=== PATIENT | male | born 1990 | race Caucasian/White ===

== ENCOUNTER 2025-01-27 03:43 | Emergency (ER) | payer BC, SELFPAY ==
[2025-01-27 03:44] VITALS: BP 140/77; PULSE 112; RESP 18; TEMP 36.8; O2SAT 95; BMI 53.1
--- NOTE | 2025-01-27 04:14 | PD.EDNV ---
Nausea/Vomit./Diarrhea-RME/HPI General Chief complaint: Headache Stated complaint: H/A, VOMITING, FEELS DEHYDRATED Time Seen by Provider: 01/27/25 03:53 Arrival date/time: 01/27/25 03:43 RME / HPI RME / HPI Narrative: 34-year-old male presents to the ED with a complaint of feeling dehydrated. He is complaining of a headache and nausea and vomiting. He states that on Sunday he went for a hike and was from his group which was carrying his water for approximately 3 hours. He said he has been trying to drink fluid to rehydrate himself however he has been having nausea and vomiting and is unable to keep anything down. He denies any recent illness with fever or chills. He denies any body aches or muscle aches. Related Data Previous Rx's ?Medication ?Instructions ?Recorded ondansetron 4 mg disintegrating 4 mg PO Q8H PRN nausea and 01/27/25 tablet vomiting #10 tabs Allergies Allergy/AdvReac Type Severity Reaction Status Date / Time NKA* Allergy Uncoded 12/02/12 17:54 Review of Systems Review of Systems Systems Reviewed: All systems reviewed, normal except as documented ED Exam Narrative Physical exam: Alert and oriented 34-year-old male, mild acute distress due to headache. Pupils are PERRL. Lungs are clear, cardiovascular tachycardic at 112, regular rhythm without murmurs. Abdomen is obese, soft and nontender. No CVA tenderness is noted. Mucous membranes are tacky. Course Course Course Narrative: Labs reveal a mildly elevated white count of 13.5 with normal H&H and normal platelets. Chemistry panel reveals normal sodium, potassium, chloride, CO2 and gap. Normal BUN and creatinine. Glucose is minimally elevated at 108. Osmolality normal at 277. Magnesium normal at 2.1, phosphorus mildly low at 2.2, LFTs are normal. CK is normal at 41. LFTs are normal. Amylase and lipase are normal. Urinalysis reveals clear yellow urine with a specific gravity of 1.027 with a pH of 6.5. Trace protein, negative glucose, negative ketones, negative nitrites and negative leukocyte esterase. 1+ blood, 12 RBCs, less than 1 WBC, amorphous crystals are present, rare bacteria noted. Urine drug screen is negative. Patient was hydrated with normal saline IV and given Toradol 30 mg IV for his headache. Quality Measures none Orders Category Date Time Status IV [Insert IV] NOW Care 01/27/25 04:05 Completed NPO STAT Care 01/27/25 04:05 Completed Amylase Stat Lab 01/27/25 04:52 Completed CBC Stat Lab 01/27/25 04:52 Completed CK [Creatine Kinase] Stat Lab 01/27/25 04:52 Completed Comprehensive Metabolic Panel Stat Lab 01/27/25 04:52 Completed Drug Screen,Urine Stat Lab 01/27/25 04:23 Completed Lipase Stat Lab 01/27/25 04:52 Completed Magnesium Stat Lab 01/27/25 04:52 Completed Phosphorous Stat Lab 01/27/25 04:52 Completed Urinalysis Stat Lab 01/27/25 04:23 Completed Urine Culture Stat Lab 01/27/25 04:23 Completed Ketorolac Inj [Toradol Inj] Med 01/27/25 05:14 Discontinued 30 mg IVP X1 ONE Ondansetron Inj [Zofran Inj] Med 01/27/25 04:05 Discontinued 4 mg IVP X1 ONE Sodium Chloride 0.9% 1000 ml [Ns] 1,000 ml Med 01/27/25 04:05 Discontinued IV 999 mls/hr Vital Signs Vital signs: Vital Signs Temperature 98.3 F 01/27/25 03:44 Pulse Rate 112 H 01/27/25 03:44 Respiratory Rate 18 01/27/25 03:44 Blood Pressure 140/77 H 01/27/25 03:44 Pulse Oximetry (%) 95 01/27/25 03:44 Oxygen Delivery Method Room Air 01/27/25 03:44 Nausea/Vomiting/Diarrhea MDM Narrative MDM Narrative:: 34-year-old male presents to the ED with a complaint of feeling dehydrated. He is complaining of a headache and nausea and vomiting. He states that on Sunday he went for a hike and was from his group which was carrying his water for approximately 3 hours. He said he has been trying to drink fluid to rehydrate himself however he has been having nausea and vomiting and is unable to keep anything down. He denies any recent illness with fever or chills. He denies any body aches or muscle aches. Alert and oriented 34-year-old male, mild acute distress due to headache. Pupils are PERRL. Lungs are clear, cardiovascular tachycardic at 112, regular rhythm without murmurs. Abdomen is obese, soft and nontender. No CVA tenderness is noted. Mucous membranes are tacky. Blood pressure 140/77, pulse 112, respirations 18 and nonlabored, temperature 98.3, O2 sat 95% on room air. Labs reveal a mildly elevated white count of 13.5 with normal H&H and normal platelets. Chemistry panel reveals normal sodium, potassium, chloride, CO2 and gap. Normal BUN and creatinine. Glucose is minimally elevated at 108. Osmolality normal at 277. Magnesium normal at 2.1, phosphorus mildly low at 2.2, LFTs are normal. CK is normal at 41. LFTs are normal. Amylase and lipase are normal. Urinalysis reveals clear yellow urine with a specific gravity of 1.027 with a pH of 6.5. Trace protein, negative glucose, negative ketones, negative nitrites and negative leukocyte esterase. 1+ blood, 12 RBCs, less than 1 WBC, amorphous crystals are present, rare bacteria noted. Urine drug screen is negative. Patient was hydrated with normal saline IV and given Toradol 30 mg IV for his headache and Zofran for nausea. Patient data External records reviewed:: None Clinical information provided by:: patient Social determinants that could affect healthcare access:: none Patient has the following chronic illnesses:: N/A How is presenting disease/condition affected by chronic disease/condition?: no chronic disease Evaluation data The following diagnostics were reviewed and interpreted by me:: lab results Lab and/or radiology exams considered but not ordered:: N/A Interpretation Summary: Labs reveal a mildly elevated white count of 13.5 with normal H&H and normal platelets. Chemistry panel reveals normal sodium, potassium, chloride, CO2 and gap. Normal BUN and creatinine. Glucose is minimally elevated at 108. Osmolality normal at 277. Magnesium normal at 2.1, phosphorus mildly low at 2.2, LFTs are normal. CK is normal at 41. LFTs are normal. Amylase and lipase are normal. Urinalysis reveals clear yellow urine with a specific gravity of 1.027 with a pH of 6.5. Trace protein, negative glucose, negative ketones, negative nitrites and negative leukocyte esterase. 1+ blood, 12 RBCs, less than 1 WBC, amorphous crystals are present, rare bacteria noted. Urine drug screen is negative. Medications / Prescriptions Medications / Prescriptions considered but not ordered:: N/A Medication administrations:: Medication Administration History Discontinued Medications Sodium Chloride (Ns) 1,000 mls @ 999 mls/hr IV .Q1H1M ONE Stop: 01/27/25 05:05 Last Infusion: 01/27/25 06:00 Dose: Infused Documented By: Admin: 01/27/25 04:58 Dose: 999 mls/hr Documented By: SIMON Ketorolac Tromethamine (Ketorolac Inj 30 Mg/Ml Vial) 30 mg IVP X1 ONE Stop: 01/27/25 05:15 Last Admin: 01/27/25 05:35 Dose: 30 mg Documented By: SIMON Ondansetron HCl (Ondansetron Inj 2 Mg/Ml Inj 2 Ml) 4 mg IVP X1 ONE; Protocol Stop: 01/27/25 04:06 Last Admin: 01/27/25 04:58 Dose: 4 mg Documented By: SIMON Toradol 30 mg IVP, Zofran 4 mg IVP, sodium chloride IV. Consultations Consultation(s) initiated? (list below): No Diagnosis Nausea Differential Diagnosis: gastroenteritis, drug-induced nausea and vomiting, dehydration and other (Rhabdomyolysis, gastritis, headache with vomiting) Most likely diagnosis given after review of the tests above:: Headache with vomiting Admission Indicated Admission indicated?: not indicated Explain why admission is indicated or not indicated:: Patient is stable for discharge Admission Request Was there a request for admission?: No Disposition Plan Disposition Plan: Discharge Discharge Attestation Discharge Attestation: The patient and all family members were given an opportunity to ask questions and understood the discharge instructions. Discharge instructions specifically effects, indications for sooner follow up or return to the emergency department, and the expected course of current diagnosis. Patient condition: Stable Discharge Plan Plan Patient Disposition: HOME (Self Care) Discharge Disposition comment: Stable and Improved Prescriptions/Referrals Prescriptions/Med Rec: New ondansetron 4 mg tablet,disintegrating 4 mg PO Q8H PRN (Reason: nausea and vomiting) Qty: 10 0RF Referrals: Enrico Perry MD [Primary Care Provider] - In 1 week Problem List Clinical Impression: Headache, Vomiting Patient/Caregiver Discharge Instructions Education Materials: Self-Care for Headaches, ED Vomiting (Adult) Additional Instructions: Follow-up with your primary care physician in 24 to 48 hours. Return to the ED for any new or worsening symptoms. Print Language: Lithuanian Stand Alone Forms: Marielle Award Info., Patient Portal Info Letter PA/PHERESIS SPECIALIST Supervising Physician PA/PHERESIS SPECIALIST Supervising Physician: Dr. Chery
[2025-01-27] MEDS: SODIUM CHLORIDE 0.9% 1000 ML 1,000 ML 999 ML IV (04:58)
[2025-01-27] MEDS: ONDANSETRON INJ 2 MG/ML INJ 2 ML 4 MG IVP (04:58)
[2025-01-27 05:02] LABS: Collection Type, Urine Clean Catch
[2025-01-27 05:05] LABS: Basophils % (Auto) 0 % (0-2.5); Eosinophils % (Auto) 0 % (0-10); Hematocrit 43.3 % (41.0-53.0); Hemoglobin 14.9 g/dL (13.5-16.0); Immature Granulocytes % (Auto) 0 % (0-0); Immature Granulocytes Auto 0.05 Thou/mm3 (0.00-0.00); Lymphocytes # (Auto) 1.9 Thou/mm3 (1.0-4.8); Lymphocytes % (Auto) 14 % (10-50); Mean Corpuscular HGB Conc 34.4 g/dl (31.0-37.0); Mean Corpuscular Hemoglobin 28.3 pg (25.0-35.0); Mean Corpuscular Volume 82 fL (80-100); Monocytes # (Auto) 1.2 Thou/mm3 (0.0-0.8); Monocytes % (Auto) 9 % (0-12); Neutrophils # (Auto) 10.3 Thou/mm3 (1.8-7.7); Neutrophils % (Auto) 77 % (37-80); Nucleated Red Blood Cell % 0 /100 WBC (0); Platelet Count 285 Thou/mm3 (140-440); RDW Standard Deviation 38.1 fL (35.1-43.9); Red Blood Count 5.26 Miln/mm3 (4.50-5.90); White Blood Count 13.5 Thou/mm3 (3.8-10.6)
[2025-01-27 05:11] LABS: Amorphous Crystals,Urine Present (Absent); Bacteria,Urine Rare; Bilirubin,Urine Negative (Negative); Blood,Urine 1+ (Negative); Clarity,Urine Clear (Clear/Hazy); Color,Urine Yellow (Lt Yel-Yel); Glucose, Urine Negative (Negative); Ketones,Urine Negative (Negative); Leukocyte Esterase,Urine Negative (Negative); Nitrite,Urine Negative (Negative); PH,Urine 6.5 (5.0-7.0); Protein,Urine Trace (Neg - Trace); RBC,Urine 12 /hpf (0-3); Specific Gravity,Urine 1.027 (1.001-1.035); Squamous Epithelial Cell,Urine < 1 /hpf (0-5); Urobilinogen,Urine Negative mg/dL (0.0-1.0); WBC,Urine < 1 /hpf (0-5)
[2025-01-27 05:26] LABS: Alanine Aminotransferase 49 U/L (10-49); Albumin, Serum 4.4 gm/dL (3.5-5.0); Albumin/Globulin Ratio 1.8 (1.2-2.2); Alkaline Phosphatase 69 U/L (46-116); Amylase 61 U/L (30-118); Anion Gap 9 (7-16); Aspartate Amino Transferase 23 U/L (0-34); BUN/Creatinine Ratio 8 Ratio (12-20); Bilirubin,Total 0.4 mg/dL (0.3-1.2); Blood Urea Nitrogen 9 mg/dL (9-23); Carbon Dioxide 24.7 mMol/L (20.0-31.0); Chloride 105 mMol/L (98-107); Creatine Kinase 41 U/L (34-171); Creatinine (Component) 1.1 mg/dL (0.6-1.3); Estimated Creatinine Clearance 142.6 mL/min (>60); Globulin 2.4 gm/dL (2.3-3.5); Glucose 108 mg/dL (74-106); Lipase 50 U/L (12-53); Magnesium 2.1 mg/dL (1.6-2.6); Osmolality,Calculated 277 (275-295); Phosphorous 2.2 mg/dL (2.4-5.1); Sodium 139 mMol/L (136-145); Total Protein 6.8 gm/dL (5.7-8.2); eGFR > 60 See Note
[2025-01-27 05:27] LABS: Amphetamine/Methamp Scrn,U Negative (Negative); Barbiturate Screen,Urine Negative (Negative); Benzodiazepines Screen,Urine Negative (Negative); Benzoylecgonine Screen, Ur Negative (Negative); Fentanyl Screen,Urine Negative (Negative); Opiate Screen,Urine Negative (Negative); THC Screen,Urine Negative (Negative)
[2025-01-27] MEDS: KETOROLAC INJ 30 MG/ML VIAL IVP (05:35)
[2025-01-27 06:38] VITALS: BP 104/59; PULSE 88; RESP 18; TEMP 37; O2SAT 98
== END 2025-01-27 06:41 | disposition home or self-care (01) ==
PROVIDERS: Physician Assistant; Emergency Provider Emergency Medicine; PCP Family Medicine
DX: R51.9 Headache, unspecified (principal); R11.2 Nausea with vomiting, unspecified; D72.829 Elevated white blood cell count, unspecified
CPT/HCPCS: 36415; 80053; 80307; 81001; 82150; 82550; 83690; 83735; 84100; 85025; 87086; 96361; 96374; 96375; 99284; J1885; J2405; J7030